=== PATIENT | male | born 1960 | race Caucasian/White ===

== ENCOUNTER 2021-01-11 22:15 | Observation (INO) | payer BC ==
[2021-01-11 23:24] LABS: #Basophils 0.1 thou/uL (0.0-0.2); #Eosinphils 0.2 thou/uL (0.0-0.7); #Lymphocytes 1.7 thou/uL (1.20-3.40); #Monocytes 0.6 thou/uL (0.11-0.59); #Neutrophils 4.6 thou/uL (1.40-6.50); %Basophils 0.8 % (0.0-1.0); %Eosinophils 3.1 % (0.0-10.0); %Lymphocytes 23.5 % (21.0-51.0); %Monocytes 8.4 % (0.0-10.0); %Neutrophils 64.2 % (42.0-75.0); Hemoglobin 15.6 g/dL (14.0-18.0); Mean Corpuscular HGB CONC 34.4 g/dL (32.0-36.0); Mean Corpuscular Hemoglobin 30.6 pg (27.0-31.0); Mean Platelet Volume 8.1 fL (7.4-10.4); Platelet Count 187 thou/uL (130-400); RBC Distribution Width 13.8 % (11.5-14.5); White Blood Cell (WBC) Count 7.1 thou/uL (4.8-10.8)
[2021-01-11 23:43] LABS: ALT (SGPT) 26 U/L (8-55); AST (SGOT) 20 U/L (5-34); Albumin 4.2 g/dL (3.5-5.0); Alkaline Phosphatase 50 U/L (40-110); Anion Gap 13 mmol/L (10-20); BUN (Urea Nitrogen) 19 mg/dL (8.4-25.7); Bilirubin, Total 0.4 mg/dL (0.2-1.2); CK (CPK) 68 U/L (30-200); Calc. Creatinine Clearance 0 mL/min (70-130); Carbon Dioxide 26 mmol/L (22-29); Chloride 102 mmol/L (98-107); Globulin 2.7 g/dL (2.4-3.5); Glucose 120 mg/dL (70-105); Lipase 54 U/L (8-78); Potassium 4.1 mmol/L (3.5-5.1); Protein, Total 6.9 g/dL (6.0-8.3); Sodium 137 mmol/L (136-145)
--- NOTE | 2021-01-11 23:45 | RAD ---
Chest AP view INDICATION: Left-sided chest pain COMPARISON: August 17, 2020 FINDINGS: Lungs: The lungs are clear Cardiac silhouette: The cardiomediastinal silhouette appears within normal limits. Pulmonary vasculature: Normal Pleural spaces: No pleural effusion or pneumothorax is demonstrated. Upper abdomen: No abnormality seen. Osseous structures: No acute osseous abnormality. Additional findings: None. IMPRESSION: No acute cardiopulmonary abnormality.
[2021-01-12] MEDS ORDERED: Nitroglycerin 0.4 MG TAB 1 EACH ONE (00:39)
[2021-01-12] MEDS ORDERED: Aspirin Chewable 81 MG TAB ONE ×3 (00:39→11:18)
[2021-01-12] MEDS ORDERED: Nitroglycerin 0.4 MG TAB (25 Tab Bottle) SL PRN (02:03)
[2021-01-12 02:14] VITALS: BMI 38.3
[2021-01-12 02:52] LABS: Troponin I Less than 0.010 ng/mL (< 0.028)
[2021-01-12 03:00] LABS: Cardiac Risk 6.1 (Less than 4.5)
--- NOTE | 2021-01-12 03:29 | PDOC.HHP ---
Hospitalist HPI History of Present Illness: ADMISSION DATE: 01/12/2021 TIME OF ASSESSMENT: 0200 CHIEF COMPLAINT: Chest pain HPI: This is a 60-year-old gentleman who presents to the emergency department with complaints of chest pain that started at approximately 7:30 PM yesterday evening. It is in the left upper part of his chest radiating into the left shoulder. Denies any trauma or injuries. The patient states it only lasted a few minutes however the pain continued to recur and eventually lasted 30 minutes an hour which prompted him to seek medical attention. The patient states he has had occasional discomfort for the last several weeks. He states that usually occurs at night while he is resting and states it is always around the same time, between 7 and 8 PM. Normally it eases on its own and does not recur. Denies having any chest pain with exertion or shortness of breath. He did not experience any concurrent diaphoresis, nausea or vomiting. Denies experiencing any palpitations. Has not had any recent cough or hemoptysis. No shortness of breath. Has not had any recent fevers, chills or sweats. No urinary symptoms. His appetite has been very good. All other review systems are negative. Patient states his last stress test was several years ago and he did undergo a cardiac catheterization almost 10 years ago which was unremarkable. ED COURSE: EKG done in the emergency department showed a normal sinus rhythm with no ST changes or T wave abnormalities. Heart rate of 70. CBC unremarkable. BUN 19, creatinine 0.99, GFR 77, glucose 120, LFTs normal. Lipase 54. Troponin negative x2. Potassium 4.1. Chest x-ray shows no acute cardiopulmonary abnormality. CT angiogram of the chest obtained, pending results. Patient given aspirin 324 mg p.o. x1. States he did not receive nitroglycerin because the pain had subsided shortly after the aspirin. Allergies/Adverse Reactions: Allergy/AdvReac Type Severity Reaction Status Date / Time No Known Drug Allergies Allergy Verified 01/12/21 02:11 Past History: PAST MEDICAL HISTORY: 1. Hypertension 2. Obesity 3. Low testosterone, started testosterone therapy 6 months ago. 4. Diverticulitis 5. GERD 6. Heavy alcohol consumption PAST SURGICAL HISTORY: 1. Right knee repair 2. Left hip replacement 3. Umbilical hernia repair 4. Tonsillectomy SOCIAL HISTORY: He is fully independent at baseline. Reports drinking 2 liquor based alcoholic beverages a day but denies any history of issues with withdrawal. States he is able to go 1 or 2 days without any alcohol. No drug use. FAMILY HISTORY: His paternal grandfather had diabetes. ALLERGIES: No known drug allergies CURRENT MEDICATIONS: 1. Valsartan/HCTZ 160 mg - 12.5 mg p.o. daily 2. Omeprazole 40 mg p.o. daily 3. Celebrex 200 mg p.o. daily Hospitalist Exam Vitals: Weight Weight 259 lb 14.8 oz General Appearance: NAD, awake alert Eye: PERRL, anicteric sclera ENT: normocephalic atraumatic, no oropharyngeal lesions, moist mucosa Neck: supple, no lymphadenopathy Heart: RRR, no murmur, no gallops, no rubs, normal peripheral pulses Respiratory: CTAB, no wheezes, no rales, no ronchi, normal chest expansion Respiratory - other findings: no tenderness to left upper chest/shoulder Gastrointestinal: soft, non-tender, non-distended, normal bowel sounds, no palpable masses Extremities: no edema Skin: normal turgor, no lesions, no rashes Neurological: cranial nerve grossly intact, normal sensation to touch Musculoskeletal: normal tone, normal strength, no muscle wasting Psychiatric: normal affect, normal behavior, A&O x 3 Hospitalist Results Result Diagrams: 01/11/21 23:12 01/11/21 23:12 Lab results: Laboratory Last Values WBC 7.1 thou/uL (4.8-10.8) 01/11/21 23:12 RBC 5.10 mill/uL (4.70-6.10) 01/11/21 23:12 Hgb 15.6 g/dL (14.0-18.0) 01/11/21 23:12 Hct 45.4 % (42.0-52.0) 01/11/21 23:12 MCV 89.0 fL (78.0-98.0) 01/11/21 23:12 MCH 30.6 pg (27.0-31.0) 01/11/21 23:12 MCHC 34.4 g/dL (32.0-36.0) 01/11/21 23:12 RDW 13.8 % (11.5-14.5) 01/11/21 23:12 Plt Count 187 thou/uL (130-400) 01/11/21 23:12 MPV 8.1 fL (7.4-10.4) 01/11/21 23:12 Neutrophils % 64.2 % (42.0-75.0) 01/11/21 23:12 Lymphocytes % 23.5 % (21.0-51.0) 01/11/21 23:12 Monocytes % 8.4 % (0.0-10.0) 01/11/21 23:12 Eosinophils % 3.1 % (0.0-10.0) 01/11/21 23:12 Basophils % 0.8 % (0.0-1.0) 01/11/21 23:12 Neutrophils # 4.6 thou/uL (1.40-6.50) 01/11/21 23:12 Lymphocytes # 1.7 thou/uL (1.20-3.40) 01/11/21 23:12 Monocytes # 0.6 thou/uL (0.11-0.59) H 01/11/21 23:12 Eosinophils # 0.2 thou/uL (0.0-0.7) 01/11/21 23:12 Basophils # 0.1 thou/uL (0.0-0.2) 01/11/21 23:12 Sodium 137 mmol/L (136-145) 01/11/21 23:12 Potassium 4.1 mmol/L (3.5-5.1) 01/11/21 23:12 Chloride 102 mmol/L (98-107) 01/11/21 23:12 Carbon Dioxide 26 mmol/L (22-29) 01/11/21 23:12 Anion Gap 13 mmol/L (10-20) 01/11/21 23:12 BUN 19 mg/dL (8.4-25.7) 01/11/21 23:12 Creatinine 0.99 mg/dL (0.7-1.3) 01/11/21 23:12 Estimated GFR (MDRD) 77 01/11/21 23:12 Glucose 120 mg/dL (70-105) H 01/11/21 23:12 Calcium 9.0 mg/dL (7.8-10.44) 01/11/21 23:12 Total Bilirubin 0.4 mg/dL (0.2-1.2) 01/11/21 23:12 AST 20 U/L (5-34) 01/11/21 23:12 ALT 26 U/L (8-55) 01/11/21 23:12 Alkaline Phosphatase 50 U/L (40-110) 01/11/21 23:12 Creatine Kinase 68 U/L (30-200) 01/11/21 23:12 Troponin I Less than 0.010 ng/mL (< 0.028) 01/12/21 02:14 Serum Total Protein 6.9 g/dL (6.0-8.3) 01/11/21 23:12 Albumin 4.2 g/dL (3.5-5.0) 01/11/21 23:12 Globulin 2.7 g/dL (2.4-3.5) 01/11/21 23:12 Albumin/Globulin Ratio 1.6 g/dL (1.2-2.2) 01/11/21 23:12 Triglycerides 159 mg/dL (Less than 150) H 01/12/21 02:14 Cholesterol 158 mg/dl (< 200 Desired) 01/12/21 02:14 LDL Cholesterol, Calc 100 mg/dL 01/12/21 02:14 HDL Cholesterol 26 mg/dL (>60 Neg Risk) 01/12/21 02:14 Heart Disease Risk Ratio 6.1 (Less than 4.5) 01/12/21 02:14 Lipase 54 U/L (8-78) 01/11/21 23:12 Hospitalist H&P A/P (1) Chest pain Code(s): R07.9 - CHEST PAIN, UNSPECIFIED Status: Acute Assessment and Plan: Cardiac monitoring NPO Trend troponins CTA chest done, results pending Continue daily aspirin Stress test ordered (2) GERD (gastroesophageal reflux disease) Code(s): K21.9 - GASTRO-ESOPHAGEAL REFLUX DISEASE WITHOUT ESOPHAGITIS Status: Chronic Assessment and Plan: Resume omeprazole (3) Hypertension Code(s): I10 - ESSENTIAL (PRIMARY) HYPERTENSION Status: Chronic Assessment and Plan: Monitor BP Resume home meds once doses verified (4) Heavy alcohol use Code(s): Z78.9 - OTHER SPECIFIED HEALTH STATUS Status: Acute Assessment and Plan: ASE protocol ordered Check Mg+ (5) Obesity Code(s): E66.9 - OBESITY, UNSPECIFIED Status: Acute (6) Testosterone deficiency in male Code(s): E29.1 - TESTICULAR HYPOFUNCTION Status: Chronic Plan: CODE STATUS FULL Case discussed with Dr. Crockett who agrees with plan as above. ADDENDUM: patient states his insurance renews on Friday and concerned about having all tests done prior to then since he has already met his deductible for the year.
[2021-01-12 05:52] LABS: Troponin I 0.018 ng/mL (< 0.028)
--- NOTE | 2021-01-12 08:40 | CT ---
PRELIMINARY REPORT/[facility]/EMERGENCY AFTER HOURS PROCEDURE: EXAM: CTA Chest with Intravenous Contrast CLINICAL HISTORY: 60-year-old male with past medical history of hypertension and obesity and hyperten tal and low testosterone presents for 1 day history of left-sided sharp chest pain with radiation to the left shoulder TECHNIQUE: Axial CTA images of the chest with intravenous contrast. Three-dimensional MIP/volume rend ered reformations were performed. CONTRAST: With; ISOVUE COMPARISON: None provided. FINDINGS: PULMONARY ARTERIES There is no intraluminal filling defect suspicious for PE. AORTA No thoracic aortic aneurysm or dissection. LUNGS Question trace scattered patchy groundglass airspace densities, nonspecific, may consider follo wup if there is any clinical concern for atypical or viral pneumonia. PLEURAL SPACES No pleural effusion. No pneumothorax. HEART AND MEDIASTINUM No cardiomegaly. No significant pericardial effusion. LYMPH NODES No lymphadenopathy. BONES No focal osseous abnormality or acute fracture. CHEST WALL AND UPPER ABDOMEN Images through the upper abdomen are unremarkable. The chest wall is unr emarkable. IMPRESSION: 1. No evidence of pulmonary embolism. 2. Question trace scattered patchy groundglass airspace densities, nonspecific, may consider followup if there is any clinical concern for atypical or viral pneumonia. ELECTRONICALLY SIGNED BY: Blaine Fernandez MD Jan 12, 2021 12:51:58 AM DIRECTOR OF ENGINEERING FINAL REPORT EMERGENT AFTER HOURS CTA OF THE CHEST WITH CONTRAST: FINDINGS/IMPRESSION: I agree with the findings and impression given in the preliminary report per [facility] physici an. 1. No evidence of pulmonary thromboembolism. 2. There are subtle patchy opacities in the lungs. These may represent atelectasis or very early pe ripheral infiltrates. POS: OFF
[2021-01-12] MEDS ORDERED: Aspirin Chewable 81 MG TAB PO SCH (09:00)
[2021-01-12] MEDS ORDERED: Iopamidol-370 76% 500 ML 1 ML ONE (11:41)
[2021-01-12 12:53] LABS: SARS-CoV-2 PCR by NAA Not Detected (NotDetected)
--- NOTE | 2021-01-12 16:35 | NM ---
Radionucleotide stress and rest myocardial perfusion scan with CT attenuation correction and SPECT im aging Left ventricular wall motion evaluation and ejection fraction HISTORY: Chest pain. FINDINGS: Adenosine protocol. There is homogeneous uptake of radiotracer throughout the left ventricular myocardium. No focal perfu tal defect or reversibility. QGS analysis of gated SPECT images shows no focal wall motion abnormalities. Ejection fraction calcul ated at 59%. IMPRESSION : No evidence of ischemia. Normal LVEF.
--- NOTE | 2021-01-12 16:54 | PDOC.DS.DS ---
Provider Date of Admission: 01/12/21 01:15 Date of Discharge: 01/12/21 Admitting Provider: Herberth Crockett MD Primary Care Physician: Bud Niño MD Course Hospital Course: Discharge diagnosis: 1. Chest pain 2. Chest pain most likely secondary to musculoskeletal etiology 3. Dyslipidemia 4. COVID-19 test negative Hospital course: Patient is a pleasant 60-year-old gentleman who was admitted to the hospital on January 12, [address] angiogram of the chest did not show any evidence of pulmonary embolism. There was questionable trace scattered patchy groundglass airspace densities, nonspecific, may consider follow-up if there is any clinical concern for atypical or viral pneumonia. He had nuclear stress test, which did not show any evidence of ischemia. Left ventricle ejection fraction was calculated at 59%. He improved clinically and is being discharged home in a stable condition. Many thanks for allowing me to participate in your patient's care. Please feel free to contact me with any questions or concerns. Discharge destination: Home Lab Results: 01/11/21 23:12 01/11/21 23:12 Abnormal Lab Results - Last 48 hrs 01/11/21 23:12: Monocytes # 0.6 H 01/12/21 02:14: Triglycerides 159 H Vitals: Weight Weight 259 lb 14.8 oz Physical Exam: The patient was seen and examined on the day of discharge. Plan Allergies: No Known Drug Allergies Allergy (Verified 01/12/21 02:11) Referrals: Bud Niño MD [Primary Care Provider] - Disposition: HOME
== END 2021-01-12 17:36 | disposition home or self-care (01) ==
LOC: ERS 22:15 → ERHOLD 01-12 01:15
PROVIDERS: ADMIT Internal Medicine; ATTEND Internal Medicine
DX: R07.9 Chest pain, unspecified (principal); E29.1 Testicular hypofunction; K21.9 Gastro-esophageal reflux disease without esophagitis; I10 Essential (primary) hypertension; E66.9 Obesity, unspecified; Z68.38 Body mass index [BMI] 38.0-38.9, adult; Z79.899 Other long term (current) drug therapy; Z20.822 Contact with and (suspected) exposure to COVID-19
CPT/HCPCS: 36415; 71045; 71275; 78452; 80053; 80061; 82550; 83690; 83735; 84443; 84484; 85025; 87635; 93005; 93017; A9500; A9503; G0378; J0153; Q9967; U0003; U0005